=== PATIENT | female | born 1945 | race Caucasian/White ===

== ENCOUNTER 2022-12-01 20:32 | Emergency (ER) | payer MEDICARE, OTHER ==
[2022-12-01] MEDS ORDERED: TRANEXAMIC ACID 1,000 MG/10 ML VIAL NAS STA (20:40)
[2022-12-01] MEDS ORDERED: OXYMETAZOLINE HCL 100 SPRAYS BOTTLE NAS STA (20:40)
[2022-12-01 20:51] VITALS: BP 172/99
--- NOTE | 2022-12-01 21:06 | ED Physician Documentation ---
History of Present Illness - Stated complaint Stated Complaint: NOSE BLEED - Chief complaint Chief Complaint: Heent - Additonal information Additional information: 77-year-old female presents emergency department for evaluation of bilateral epistaxis. [place] Has been here for just about 1 week. She was cooking hamburgers when she began having sudden bleeding from both her nostrils. She attempted holding pressure over her nose at home and was unable to get the bleeding to stop therefore she presents to the ER. No recent trauma. Denies nose picking. She does typically take Aleve every day for aches and pains. Only previous history of epistaxis has occurred when she has been at very high elevations. Review of Systems Constitutional: reports: Reviewed and negative Nose: reports: Epistaxis Throat: reports: Reviewed and negative Cardiac: reports: Reviewed and negative GI: reports: Reviewed and negative PD PAST MEDICAL HISTORY - Present Medications Home Medications: Ambulatory Orders Medication Instructions Recorded Confirmed Irbesartan [Avapro] 300 mg PO DAILY 12/01/22 12/01/22 Levothyroxine Sodium [Synthroid] 88 mcg PO DAILY 12/01/22 12/01/22 Liothyronine [Cytomel] 5 mcg PO QDAC 12/01/22 12/01/22 Montelukast [Singulair] 10 mg PO DAILY 12/01/22 12/01/22 - Allergies Allergies/Adverse Reactions: Allergies Allergy/AdvReac Type Severity Reaction Status Date / Time meperidine [From Demerol] Allergy Unknown Verified 12/01/22 20:49 Penicillins Allergy Hives Verified 12/01/22 20:49 sulfamethoxazole Allergy Hives Verified 12/01/22 20:49 [From Bactrim] trimethoprim [From Bactrim] Allergy Hives Verified 12/01/22 20:49 PD ED PE EXPANDED - General General: Alert, No acute distress - HEENT HEENT: Other (No active epistaxis at this time. No bleeding noted in the posterior oropharynx. Bilateral anterior nares with some superficial friable vessels.) Results - Vitals Vitals: Vital Signs - 24 hr 12/01/22 20:35 Temperature 36 C L Heart Rate 75 Respiratory 16 Rate Blood Pressure 172/99 H O2 Saturation 100 Oxygen O2 Source Room air PD Medical Decision Making - ED course Complexity details: d/w patient ED course: 77-year female presented to the emergency department for evaluation of bilateral epistaxis that occurred spontaneously while cooking hamburgers. [place]. When she presented to the emergency department nursing staff placed a nasal clamp on her nose. After it been in place for about 20 minutes I evaluated the patient and found that there was no evidence of bleeding in her posterior oropharynx. The nasal clamp was then removed and I evaluated the anterior nares. She did have some friable vessels in the right anterior nasal bed. I did place Afrin nasal spray on some gauze saturated also with bacitracin and applied the gauze to to both of the anterior nares and reapplied the clamp. On reevaluation no further bleeding was noted. I believe this bleeding to be superficial anterior and in no way represents a posterior bleeding episode. The patient does typically take Aleve every day. I have asked her to reconsider her NSAID use. She is discharged home in stable condition with usual emergent return precautions discussed Departure - Departure Disposition: 01 Home, Self Care Clinical Impression: Epistaxis not due to trauma Condition: Stable Record reviewed to determine appropriate education?: Yes Instructions: Nosebleed Comments: Brianna weaver developed a sudden nosebleed in both your nostrils today at home. We were able to get the bleeding to easily stop by simply placing a nose clamp. On exam you do have some friable superficial vessels in the right nares. We did apply some Afrin nasal spray to some gauze that was sent also lubricated with antibiotic ointment. On reevaluation you have no further bleeding noted. I suspect that the cause of the nosebleed could be simply due to a new environment and whether or it could be due to daily NSAID use. I implore you to consider your NSAID use and discuss with your primary doctor. When you return to [place] your doctor may want to obtain screening labs. If you develop another nosebleed to simply place the nasal clamp on your nose. If it does not stop successfully after 15 to 20 minutes then you can saturate some gauze with the Afrin nasal spray And reapply the clamp. If it still does not stop then please return to the emergency department. Please enjoy your visit to [facility]
== END 2022-12-01 22:00 | disposition home or self-care (01) ==
LOC: ED 20:32
DX: R04.0 Epistaxis (principal)
CPT/HCPCS: 99283; A9270; 80048; 85025

== ENCOUNTER 2023-05-27 15:23 | Outpatient (CLI) | payer MEDICARE, OTHER ==
--- NOTE | 2023-05-27 16:05 | XRAY Report ---
PROCEDURE: Chest 2 View X-Ray INDICATIONS: CHRONIC COUGH TECHNIQUE: 2 views of the chest were acquired. COMPARISON: None. FINDINGS: Surgical changes and devices: None. Lungs and pleura: No pleural effusions or pneumothorax. Lungs are clear. Mediastinum: Mediastinal contours appear normal. Heart size is normal. Bones and chest wall: No suspicious bony lesions. Bilateral calcified mammoplasties. IMPRESSION: No acute cardiopulmonary process. Reviewed by: Johnnie Camejo MD on 05/27/2023 4:04 PM [facility] Approved by: Johnnie Camejo MD on 05/27/2023 4:04 PM [facility] Station ID: [id number]
== END 2023-05-27 15:24 | disposition home or self-care (01) ==
LOC: DI.S 15:23
PROVIDERS: ATTEND Physician Assistant Medical
DX: R05.3 Chronic cough (principal)

== ENCOUNTER 2023-05-31 14:57 | Outpatient (CLI) | payer MEDICARE, OTHER ==
[2023-05-31 19:57] LABS: BASOPHILS # (AUTO) 0.1 10^3/uL (0.0-0.1); BASOPHILS % (AUTO) 1.2 %; EOSINOPHILS # (AUTO) 0.1 10^3/uL (0.0-0.7); HCT - HEMATOCRIT 39.4 % (37.0-47.0); HGB - HEMOGLOBIN 12.6 g/dL (12.0-16.0); LYMPHOCYTES # (AUTO) 1.2 10^3/uL (1.5-3.5); LYMPHOCYTES % (AUTO) 24.3 %; MEAN CORPUSCULAR HEMOGLOBIN 32.7 pg (27.0-31.0); MEAN CORPUSCULAR VOLUME 102.3 fL (81.0-99.0); MEAN PLATELET VOLUME 11.2 fL (7.9-10.8); MONOCYTES # (AUTO) 0.4 10^3/uL (0.0-1.0); MONOCYTES % (AUTO) 8.8 %; NEUTROPHILS # (AUTO) 3.2 10^3/uL (1.5-6.6); NEUTROPHILS % (AUTO) 64.5 %; PLT - PLATELET COUNT 227 10^3/uL (130-450); RED BLOOD COUNT 3.85 10^6/uL (4.20-5.40); RED CELL DISTRIBUTION WIDTH 12.7 % (12.0-15.0)
[2023-05-31 20:10] LABS: ALBUMIN 4.2 g/dL (3.2-5.5); ALBUMIN/GLOBULIN RATIO 1.7 (1.0-2.2); ALKALINE PHOSPHATASE 45 IU/L (42-121); ALT ALANINE AMINOTRANSFERASE 13 IU/L (10-60); AST ASPARTATE AMINOTRANSFERASE 14 IU/L (10-42); BILIRUBIN,TOTAL 0.4 mg/dL (0.2-1.0); BUN - BLOOD UREA NITROGEN 17 mg/dL (6-20); CALCIUM 9.9 mg/dL (8.5-10.3); CARBON DIOXIDE - CO2 29 mmol/L (21-32); CHLORIDE 106 mmol/L (101-111); CHOL/HDL RATIO 1.8 (<4.4); CHOLESTEROL 172 mg/dL; CREATININE 0.6 mg/dL (0.6-1.3); GFR - MDRD 97 (>89); GLUCOSE 89 mg/dL (74-104); HDL CHOLESTEROL 95 mg/dL; LDL CHOLESTEROL,CALCULATED 52 mg/dL; LDL/HDL RATIO 0.5 (<4.4); POTASSIUM 4.2 mmol/L (3.5-4.5); SODIUM 140 mmol/L (135-145); TOTAL PROTEIN 6.7 g/dL (6.4-8.9); TRIGLYCERIDES 125 mg/dL (48-352); VLDL CHOLESTEROL 25 mg/dL
[2023-05-31 20:27] LABS: THYROID STIMULATING HORMONE 0.11 uIU/mL (0.34-5.60)
[2023-05-31 20:51] LABS: ESTIMATED AVERAGE GLUCOSE 105 mg/dL (70-100); HEMOGLOBIN A1c% 5.3 % (4.27-6.07)
== END 2023-05-31 14:58 | disposition home or self-care (01) ==
LOC: LAB.S 14:57
PROVIDERS: ATTEND Physician Assistant Medical
DX: E03.9 Hypothyroidism, unspecified (principal); Z13.9 Encounter for screening, unspecified
CPT/HCPCS: 36415; 80053; 80061; 83036; 83721; 84439; 84443; 84481; 85025

== ENCOUNTER 2023-06-10 08:20 | Outpatient (CLI) | payer MEDICARE, OTHER ==
--- NOTE | 2023-06-10 10:37 | DEXA Report ---
PROCEDURE: Dexa Spine and/or Hip INDICATIONS: OSTEOPOROSIS TECHNIQUE: Dual energy x-ray absorptiometry (DXA) was performed on a [employer] System. Regions measur ed are the AP Spine, femoral neck, and if needed forearm. COMPARISON: None. FINDINGS: Lumbar Spine: Bone Mineral Density 1.199 g/cm/cm,T score 0.2. Left Femoral Neck: Bone Mineral Density 0.891 g/cm/cm, T score -1.1. Left Hip: Bone Mineral Density 0.916 g/cm/cm,T score 0.7. (T score greater or equal to -1.0: NORMAL) (T score from -1.1 to -2.4: OSTEOPENIA) (T score less than or equal to -2.5 to: OSTEOPOROSIS) Impression: By WHO criteria, this patient has osteopenia. Patients with diagnosis of osteoporosis or osteopenia should have regular bone mineral density assess ment. For those eligible for Medicare, routine testing is allowed once every 2 years. Testing frequ ency can be increased for patients who have rapidly progressing disease or for those who are receivin g medical therapy to restore bone mass. Reviewed by: Alyson Vasquez MD on 06/10/2023 10:36 AM PST Approved by: Alyson Vasquez MD on 06/10/2023 10:36 AM PST Station ID: [id number]
== END 2023-06-10 08:21 | disposition home or self-care (01) ==
LOC: DI 08:20
PROVIDERS: ATTEND Physician Assistant Medical
DX: M85.88 Other specified disorders of bone density and structure, other site (principal)

== ENCOUNTER 2023-10-12 09:48 | Outpatient (CLI) | payer MEDICARE, OTHER ==
--- NOTE | 2023-10-20 09:33 | Mammography Report ---
BILATERAL DIGITAL SCREENING MAMMOGRAM 3D/2D WITH AUGMENTATION: 10/12/2023 CLINICAL: Routine screening. Family history of breast cancer. No prior exams were available for comparison. Both breasts are heterogeneously dense, which may obscure small masses (category c / 51-75% glandular tissue). There is an asymmetry in the left breast posterior depth inferior region seen on the mediolateral obl ique view only. No other significant masses, calcifications, or other findings are seen in either breast. Calcified implants are present. IMPRESSION: INCOMPLETE: NEEDS ADDITIONAL IMAGING EVALUATION The asymmetry in the left breast is indeterminate. Additional views with possible ultrasound are rec ommended. Based on the Tyrer Cuzick model (a risk assessment model) the patient's lifetime risk is 2.7% and her 10 year risk is 0.0%. According to the ACR, ACS, and NCCN guidelines, an annual breast MRI exam ayesha g with mammogram is recommended if the patient's lifetime risk is 20% or greater. This exam was interpreted at Station ID: [id number]. NOTE: For mammograms, a report in lay terms will be sent to the patient. Approximately 15% of breast malignancies will not be visualized mammographically. In the management of a palpable breast mass, a negative mammogram must not discourage biopsy of a clinically suspicious lesion. Electronically Signed By: Velasquez Ashton M.D. lc/:10/20/2023 08:03:22 ACR BI-RADS Category 0: Incomplete 3340F PARENCHYMAL PATTERN: (D) - The breast(s) demonstrate(s) heterogeneously dense fibroglandular paryey ma. BI-RADS CATEGORY: (0) - 0 Mammo and [place] [id number] Immediate follow-up LATERALITY: (B)
== END 2023-10-12 09:49 | disposition home or self-care (01) ==
LOC: DI.S 09:48
DX: Z12.31 Encounter for screening mammogram for malignant neoplasm of breast (principal); R92.333 Mammographic heterogeneous density, bilateral breasts; R92.8 Other abnormal and inconclusive findings on diagnostic imaging of breast

== ENCOUNTER 2023-11-07 07:00 | Outpatient (CLI) | payer MEDICARE, OTHER ==
--- NOTE | 2023-11-07 10:48 | MRI Report ---
Hip LT WO CLINICAL HISTORY: 78 years of age, Female, L HIP PAIN. COMPARISON: None Technique: Multisequence, multiplanar MRI of the left hip was performed without contrast. IV CONTRAST: Not given FINDINGS: Labrum: Anterior superior labral tear. There is a posterior labral tear as well with small subchondr al cystic changes in the posterior acetabulum. Ligaments: Unremarkable. Tendons: There is mild muscle edema of the adductor muscle, likely representing mild muscle strain. T he left hamstring tendon is unremarkable. The left gluteal minimus tendon is unremarkable. Mild perit endinitis of the gluteal medius with low-grade tear at the greater trochanteric insertion. Small grea ter trochanteric bursitis. Osseous and cartilaginous structures: Mild degenerative changes of the left hip with mild joint space narrowing. No focal chondral defect. Sacroiliac joints and spine: Mixed fibrofatty endplate fibrovascular endplate change at the right asp ect of L4-5. The visualized sacrum, bilateral posterior iliac wing, bilateral pelvic bone, and bilate ral proximal femur are unremarkable. No acute fracture or dislocation of either femoral head. No avas cular necrosis of either femoral head. Miscellaneous: The uterus is not visualized, and may be surgically absent. IMPRESSION: 1.Mild muscle strain of the left adductor muscle. 2.Low-grade tear with mild peritendinitis of the left gluteal medius at the greater trochanteric inse rtion. Mild left greater trochanteric bursitis. 3.Mild degenerative changes of the left hip with labral tear. Reviewed by: Charlotte Navarro MD on 11/07/2023 10:47 AM PDT Approved by: Charlotte Navarro MD on 11/07/2023 10:47 AM PDT Station ID: [id number]
== END 2023-11-07 07:01 | disposition home or self-care (01) ==
LOC: DI 07:00
PROVIDERS: ATTEND Physician Assistant Medical
DX: M16.12 Unilateral primary osteoarthritis, left hip (principal); S73.192A Other sprain of left hip, initial encounter

== ENCOUNTER 2023-11-22 12:40 | Outpatient (CLI) | payer MEDICARE, OTHER ==
--- NOTE | 2023-11-23 10:24 | Ultrasound Report ---
LIMITED ULTRASOUND OF LEFT BREAST: 11/22/2023 CLINICAL: Patient returns today to evaluate a focal asymmetry in the left breast. Comparison is made to exams dated: 11/22/2023 mammogram and 10/12/2023 mammogram - [facility]. Real-time ultrasound of the left breast 6 o'clock region was performed. Chand scale images of the re al-time examination were reviewed. No significant abnormalities were seen sonographically in the left breast. Specifically, no finding t o correspond to the patient's resolved screening mammographic abnormality. IMPRESSION: PROBABLY BENIGN No sonographic correlate to the resolved screening mammogram finding. A follow-up mammogram in 6 stefania hs is recommended to demonstrate stability. Findings and recommendations were conveyed to the aylin t at time of exam. This exam was interpreted at Station ID: [id number]. Electronically Signed By: Ericka lopez/:11/22/2023 13:58:52 Ultrasound BI-RADS: 3 Probably benign BI-RADS CATEGORY: (3) - 3 Mammogram [id number] 6 month follow-up LATERALITY: (L)
--- NOTE | 2023-11-23 10:24 | Mammography Report ---
UNILATERAL LEFT DIGITAL DIAGNOSTIC MAMMOGRAM 3D/2D WITH MEDIOLATERAL WITH AUGMENTATION: 11/22/2023 CLINICAL: Patient returns today to evaluate an asymmetry in the left breast. Comparison is made to exam dated: 10/12/2023 mammogram - [facility]. There are scattered areas of fibroglandular density in the left breast (category b / 25%-50% glandula r tissue). Prior round asymmetry in the left breast at 6:00 becomes more linear on additional views and its not present as a focal asymmetry. The left implant has calcification of the capsule. No significant masses, calcifications, or other findings are seen in the breast. IMPRESSION: INCOMPLETE: NEEDS ADDITIONAL IMAGING EVALUATION Resolution of screening mammography abnormality with additional views. This is likely a skin fold. Ul trasound evaluation to confirm resolution is recommended and was performed immediately following this exam. Based on the Tyrer Cuzick model (a risk assessment model) the patient's lifetime risk is 1.8% and her 10 year risk is 0.0%. According to the ACR, ACS, and NCCN guidelines, an annual breast MRI exam ayesha g with mammogram is recommended if the patient's lifetime risk is 20% or greater. This exam was interpreted at Station ID: [id number]. NOTE: For mammograms, a report in lay terms will be sent to the patient. Approximately 15% of breast malignancies will not be visualized mammographically. In the management of a palpable breast mass, a negative mammogram must not discourage biopsy of a clinically suspicious lesion. Electronically Signed By: Ericka lopez/:11/22/2023 13:58:01 ACR BI-RADS Category 0: Incomplete 3340F PARENCHYMAL PATTERN: (A) - The breast(s) demonstrate(s) scattered fibroglandular densities. BI-RADS CATEGORY: (0) - 0 Ultrasound [id number] Immediate follow-up LATERALITY: (B)
== END 2023-11-22 12:41 | disposition home or self-care (01) ==
LOC: DI 12:40
PROVIDERS: ATTEND Physician Assistant Medical
DX: R92.8 Other abnormal and inconclusive findings on diagnostic imaging of breast (principal); R92.322 Mammographic fibroglandular density, left breast

== ENCOUNTER 2023-12-21 11:16 | Outpatient (CLI) | payer MEDICARE, OTHER ==
--- NOTE | 2023-12-22 00:14 | CT Report ---
PROCEDURE: Chest WO INDICATIONS: COUGH TECHNIQUE: A CT scan of the chest was performed. Intravenous contrast media was not administered. Images were re corded and evaluated at appropriate window settings. Reformats: axial MIP of the chest, coronal and s agittal. For radiation dose reduction, the following was used: automated exposure control, adjustment of mA and/or kV according to patient size. COMPARISON: None. FINDINGS: Image quality: Diagnostic. Chest wall and lower neck: No thyroid nodule which requires sonographic follow up. No axillary or sup raclavicular adenopathy by size. Bilateral breast implants Lungs and pleura: No consolidation. No pleural effusions. No pneumothorax. No suspicious pulmonary n odules which require follow up. Mediastinum: Heart size is normal. No pericardial effusion. No large vessel abnormality. No mediastin al adenopathy by size criteria. Minimal coronary artery calcifications. Bones: No aggressive osseous abnormality. Upper Abdomen: Unremarkable. IMPRESSION: No suspicious pulmonary nodules. No acute findings in the chest. Reviewed by: Martha Womack MD, PhD on 12/21/2023 11:13 PM [facility] Approved by: Martha Womack MD, PhD on 12/21/2023 11:13 PM [facility] Station ID: [id number]
== END 2023-12-21 11:17 | disposition home or self-care (01) ==
LOC: DI 11:16
PROVIDERS: ATTEND Internal Medicine Critical Care Medicine
DX: R05.8 Other specified cough (principal)